=== PATIENT | male | born 1960 | race African-American/Black ===

== ENCOUNTER 2018-01-02 10:15 | Emergency (ER) | payer OTHER ==
[~2018-01-02] VITALS: Ht 182.9 cm; Wt 120.7 kg
--- NOTE | 2018-01-02 11:58 | Diagnostic Imaging Report ---
EXAM: CT Abdomen and Pelvis WITHOUT contrast INDICATION: Right flank pain COMPARISON: None. TECHNIQUE: Abdomen and pelvis were scanned utilizing a multidetector helical scanner from the lung base to the pubic symphysis without administration of IV contrast. Absence of intravenous contrast decreases sensitivity for detection of focal lesions and vascular pathology. Coronal and sagittal reformations were obtained. Routine protocol was performed. IV CONTRAST: None. ORAL CONTRAST: Water RADIATION DOSE: Total DLP: 734.99 mGy*cm Estimated effective dose: (DLP x 0.015 x size factor) mSv COMPLICATIONS: None FINDINGS: LINES and TUBES: None. LOWER THORAX: Unremarkable HEPATOBILIARY: No focal hepatic lesions. No biliary ductal dilation. GALLBLADDER: No radio-opaque stones or sludge. No wall thickening. SPLEEN: No splenomegaly. PANCREAS: No focal masses or ductal dilatation. ADRENALS: No adrenal nodules KIDNEYS/URETERS: No hydronephrosis. No cystic or solid mass lesions. 2 mm nonobstructing calcified stone in the inferior pole of the left kidney on series 2, image 36. Faint 1 mm calcification in the inferior pole of the right kidney on series 2, image 36. No calcified stones in the ureters. GI TRACT: No abnormal distention, wall thickening, or evidence of bowel obstruction. Diverticulosis of the sigmoid colon without diverticulitis. Appendix is normal. PELVIC ORGANS/BLADDER: Unremarkable. LYMPH NODES: No lymphadenopathy. VESSELS: Unremarkable. PERITONEUM / RETROPERITONEUM: No free air or fluid. BONES: Multilevel degenerative changes of the lumbar spine. SOFT TISSUES: Unremarkable. IMPRESSION: 1. Nonobstructing bilateral nephrolithiasis, measuring 1 mm on the right and 2 mm on the left. 2. Diverticulosis of the sigmoid colon without diverticulitis. Signed by: Dr. Silvia Harry M.D. on 01/02/2018 11:55 AM
--- NOTE | 2018-01-02 12:00 | Diagnostic Imaging Report ---
EXAMINATION: CXR 2 VIEW - HOPD INDICATION: \[id number] \[id number] COMPARISON: CT abdomen pelvis 01/02/2018 FINDINGS: PA and lateral views TUBES and LINES: None. LUNGS: Lungs are well inflated. Lungs are clear. There is no evidence of pneumonia or pulmonary edema. PLEURA: No pleural effusion or pneumothorax. HEART AND MEDIASTINUM: The cardiomediastinal silhouette is unremarkable. BONES AND SOFT TISSUES: Multilevel degenerative changes of the thoracic spine. Soft tissues are unremarkable. UPPER ABDOMEN: No free air under the diaphragm. IMPRESSION: No acute thoracic abnormality. Signed by: Dr. Silvia Harry M.D. on 01/02/2018 11:57 AM
[2018-01-02 13:05] VITALS: BP 162/82
== END 2018-01-02 13:07 | disposition home or self-care (01) ==
LOC: FSED 10:15
DX: M25.512 Pain in left shoulder (principal); R10.9 Unspecified abdominal pain; M54.5 Low back pain; G89.29 Other chronic pain; I10 Essential (primary) hypertension; I48.91 Unspecified atrial fibrillation
CPT/HCPCS: 71046; 74176; 80053; 81003; 84484; 85025; 93005; 99284